=== PATIENT | male | born 1990 | race Caucasian/White ===

== ENCOUNTER 2016-10-07 22:55 | Emergency (ER) | payer SELFPAY ==
[~2016-10-07] VITALS: Ht 180.3 cm; Wt 159.0 kg
[2016-10-07 23:07] VITALS: Ht 180.3 cm; Wt 159.0 kg
--- NOTE | 2016-10-08 00:44 | ERA ---
ER Documentation Chief Complaint Date/Time DATE: 10/08/16 TIME: 00:43 Chief Complaint COUGH HPI The patient is a 25-year-old male, presenting to the ER because of intermittent cough a month ago that went away, however it came back for the last week and a half. He also complained of sore throat, fever for the last 3 days, also said that with loose stool. He denies hematemesis hematochezia, neck pain, chest pain, dyspnea, abdominal pain, nausea, vomiting. He does not smoke, drinks socially, denies illicit drug Past medical/surgical history: None ROS All systems reviewed and are negative except as per history of present illness. Medications Home Meds Active Scripts Dextromethorphan Hb-Promethazine Hcl (Promethazine DM Syrup) 473 Ml Syrup, 10 ML PO Q6H Y for COUGH, #4 OZ Prov:ROSINA GOVEA MD 10/08/16 Ibuprofen* (Motrin*) 600 Mg Tab, 600 MG PO Q6H Y for PAIN AND OR ELEVATED TEMP, #30 TAB Prov:ROSINA GOVEA MD 10/08/16 Amoxicillin/Potassium Clav (Amox-Clav 875-125 mg Tablet) 875-125 mg Tab, 1 TAB PO BID for 10 Days, #20 TAB Prov:ROSINA GOVEA MD 10/08/16 Allergies Allergies: Coded Allergies: No Known Allergy (Unverified , 10/08/16) PMhx/Soc History of Surgery: No Anesthesia Reaction: No Hx Neurological Disorder: No Hx Respiratory Disorders: No Hx Cardiac Disorders: No Hx Psychiatric Problems: No Hx Miscellaneous Medical Probl: No Hx Alcohol Use: No Hx Substance Use: No Hx Tobacco Use: No Physical Exam Vitals Vital Signs Date Time Temp Pulse Resp B/P Pulse Ox O2 Delivery O2 Flow Rate FiO2 10/08/16 03:13 99.6 98 18 130/65 95 Room Air 10/08/16 02:00 111 23 124/73 97 Room Air 10/08/16 00:53 119 16 127/52 100 Room Air 10/07/16 23:07 101.8 124 20 144/84 95 Physical Exam Const: No acute distress. Head: Atraumatic. Eyes: Normal Conjunctiva. ENT: Normal External Ears, Nose and Mouth. Bilateral tympanic membranes are bulging and erythematous, right tonsil is edematous with exudate Neck: Full range of motion. No meningismus. Resp: Clear to auscultation bilaterally. Cardio: Regular but tachycardic Abd: Soft, non distended, normal bowel sounds, non tender. Skin: No petechiae or rashes. Back: No midline or flank tenderness. Ext: No cyanosis, or edema. Neur: Awake and alert. No focal deficit Psych: Normal Mood and Affect. Result Diagram: 10/08/1610410/08/16104 Results 24 hrs Laboratory Tests Test 10/08/16 01:05 White Blood Count 12.910^3/ul Red Blood Count 5.1310^6/ul Hemoglobin 13.4g/dl Hematocrit 41.5% Mean Corpuscular Volume 80.9fl Mean Corpuscular Hemoglobin 26.1pg Mean Corpuscular Hemoglobin Concent 32.3g/dl Red Cell Distribution Width 14.4% Platelet Count 35581^3/UL Mean Platelet Volume 10.7fl Neutrophils % 73.2% Lymphocytes % 16.0% Monocytes % 9.0% Eosinophils % 0.9% Basophils % 0.3% Nucleated Red Blood Cells % 0.0/100WBC Neutrophils # 9.410^3/ul Lymphocytes # 2.110^3/ul Monocytes # 1.210^3/ul Eosinophils # 0.110^3/ul Basophils # 0.010^3/ul Nucleated Red Blood Cells # 0.010^3/ul Prothrombin Time 13.9Sec Prothrombin Time Ratio 1.1 INR International Normalized Ratio 1.07 Activated Partial Thromboplast Time 33.2Sec Sodium Level 137mmol/L Potassium Level 3.2mmol/L Chloride Level 95mmol/L Carbon Dioxide Level 27mmol/L Anion Gap 18 Blood Urea Nitrogen 10mg/dl Creatinine 0.85mg/dl Glucose Level 116mg/dl Lactic Acid Level 1.4mmol/L Calcium Level 8.8mg/dl Total Bilirubin 1.0mg/dl Direct Bilirubin 0.00mg/dl Indirect Bilirubin 1.0mg/dl Aspartate Amino Transf (AST/SGOT) 115IU/L Alanine Aminotransferase (ALT/SGPT) 125IU/L Alkaline Phosphatase 97IU/L Troponin I < 0.012ng/ml Total Protein 8.4g/dl Albumin 4.4g/dl Globulin 4.00g/dl Albumin/Globulin Ratio 1.10 Current Medications Medications (Trade) Dose Ordered Sig/Leonor Route PRN Reason Start Time Stop Time Status Last Admin Dose Admin Acetaminophen 650 mg 650 mg ONCE ONCE PO 10/08/16 01:00 10/08/16 01:01 DC 10/08/16 01:39 Sodium Chloride (NS) 4,930 ml @ 4,930 mls/hr BOLUS X1 ONCE IV 10/08/16 01:00 10/08/16 01:59 DC 10/08/16 01:30 Ibuprofen (Motrin) 600 mg ONCE ONCE PO 10/08/16 01:00 10/08/16 01:01 DC 10/08/16 01:39 Amoxicillin/ Clavulanate Potassium (Augmentin) 875 mg ONCE ONCE PO 10/08/16 04:00 10/08/16 04:01 Procedures/[place] [id number] Radiology Main Line: [phone] DIAGNOSTIC IMAGING REPORT Patient: MAYTE MANUEL : 1990 Age: 25 Sex: M MR #: [id number] DOS: 10/08/16 0044 Ordering MD: ROSINA GOVEA MD Location: E/R Room/Bed: PROCEDURE: Portable chest x-ray. CLINICAL INDICATION: Sepsis. TECHNIQUE: Portable AP view of the chest. COMPARISON: None. FINDINGS: No pulmonary edema or conolidation is identified. The cardiac silhouette is enlarged. No pleural effusion is seen. There is no pneumothorax. IMPRESSION: 1. No evidence of acute cardiopulmonary disease. 2. Enlarged cardiac silhouette. RPTAT: HTAR .Nick Hutton MD, MD Date Time Electronically viewed and signed by .Nick Hutton MD, MD on 10/08/2016 02:02 .R/ CC: ROSINA GOVEA MD EKG: Read by emergency physician Rate/Rhythm: Sinus tachycardia 114 beats/min QRS, ST, T-waves: No ST elevation, no T inversion, LAD, RVH Impression: Abnormal EKG MEDICAL MAKING DECISION: The patient is a 5-year-old male, presenting with acute bilateral otitis media, acute tonsillitis, acute dehydration, acute hypokalemia. He was treated with normal saline 30 mL/kg IV for acute dehydration, potassium chloride 40 mEq p.o. for low potassium, Tylenol and Motrin for fever, Augmentin p.o. for acute tonsillitis and acute bilateral otitis media with good response. He felt better, his vital signs normalized. The differential diagnoses considered include but are not limited to tonsillar abscess, pharyngitis, cellulitis, pneumonia, cystitis, pyelonephritis Departure Diagnosis: Primary Impression: Otitis media Additional Impressions: Tonsillitis Dehydration Hypokalemia Anemia Condition: Good Comments He was discharged with Augmentin, Motrin, Phenergan DM I discussed the findings with the patient. I advised the patient to follow-up with the primary physician in about 1-2 days, sooner if needed and return if any concern. The patient's blood pressure was elevated (>120/80) but appears stable without evidence of hypertension emergency or urgency. The patient was counseled about the risks of hypertension and urged to pursue outpatient monitoring and therapy within a week with their primary care physician. ROSINA GOVEA MD October 08, 2016 00:44
[2016-10-08] MEDS ORDERED: ACETAMINOPHEN 325 MG TAB PO ONE (01:00)
[2016-10-08] MEDS ORDERED: SOD CHLORIDE 0.9% IV ONE (01:00)
[2016-10-08] MEDS ORDERED: IBUPROFEN 600 MG TAB PO ONE (01:00)
[2016-10-08 01:54] LABS: ADD SCAN DIFF NO
[2016-10-08 02:00] LABS: BASOPHILS % 0.3 % (0.0-2.0); EOSINOPHILS # 0.1 10^3/ul (0.0-0.5); EOSINOPHILS % 0.9 % (0.0-7.0); HEMATOCRIT 41.5 % (42.0-52.0); HEMOGLOBIN 13.4 g/dl (14.0-18.0); LYMPHOCYTES # 2.1 10^3/ul (0.8-2.9); MEAN CORPUSCULAR HEMOGLOBIN 26.1 pg (29.0-33.0); MEAN CORPUSCULAR HGB CONC 32.3 g/dl (32.0-37.0); MEAN CORPUSCULAR VOLUME 80.9 fl (82.0-101.0); MEAN PLATELET VOLUME 10.7 fl (7.4-10.4); MONOCYTE # 1.2 10^3/ul (0.3-0.9); NEUTROPHIL # 9.4 10^3/ul (1.6-7.5); NEUTROPHILS % 73.2 % (39.0-77.0); PLATELET COUNT 281 10^3/UL (140-415); RED BLOOD COUNT 5.13 10^6/ul (4.70-6.10); RED CELL DISTRIBUTION WIDTH 14.4 % (11.5-14.5); WHITE BLOOD COUNT 12.9 10^3/ul (4.8-10.8)
--- NOTE | 2016-10-08 02:02 | RADRPT ---
PROCEDURE: Portable chest x-ray. CLINICAL INDICATION: Sepsis. TECHNIQUE: Portable AP view of the chest. COMPARISON: None. FINDINGS: No pulmonary edema or conolidation is identified. The cardiac silhouette is enlarged. No pleural e ffusion is seen. There is no pneumothorax. IMPRESSION: 1. No evidence of acute cardiopulmonary disease. 2. Enlarged cardiac silhouette. RPTAT: HTAR .Nick Hutton MD, MD Date Time Electronically viewed and signed by .Nick Hutton MD, on 10/08/2016 02:02 .R/
[2016-10-08 02:12] LABS: CHLORIDE 95 mmol/L (97-110)
[2016-10-08 02:13] LABS: ALBUMIN 4.4 g/dl (3.3-4.9); POTASSIUM 3.2 mmol/L (3.5-5.1); SODIUM 137 mmol/L (135-144)
[2016-10-08 02:15] LABS: CREATININE 0.85 mg/dl (0.61-1.24); INR 1.07; PROTIME 13.9 Sec (12.2-14.2); PT RATIO 1.1
[2016-10-08 02:16] LABS: ALANINE AMINOTRANSFERASE 125 IU/L (13-69); ALKALINE PHOSPHATASE 97 IU/L (42-121); ANION GAP 18 (8-16); ASPARTATE AMINO TRANSFERASE 115 IU/L (15-46); BLOOD UREA NITROGEN 10 mg/dl (7-20); CALCIUM 8.8 mg/dl (8.4-10.2); CARBON DIOXIDE 27 mmol/L (21-31); GLUCOSE 116 mg/dl (70-220); PARTIAL THROMBOPLASTIN TIME 33.2 Sec (25.0-35.0); TOTAL PROTEIN 8.4 g/dl (6.1-8.1)
[2016-10-08 02:32] LABS: TROPONIN-I < 0.012 ng/ml (0.00-0.12)
[2016-10-08 03:27] LABS: ADD UMIC YES; URINE BILIRUBIN (Dip) NEGATIVE (NEGATIVE); URINE BLOOD (Dip) TRACE (NEGATIVE); URINE COLOR YELLOW (YELLOW); URINE GLUCOSE (Dip) NEGATIVE (NEGATIVE); URINE KETONES (Dip) NEGATIVE (NEGATIVE); URINE LEUKOCYTE ESTERASE (Dip) NEGATIVE (NEGATIVE); URINE NITRITE (Dip) NEGATIVE (NEGATIVE); URINE TOTAL PROTEIN (Dip) 1+ (NEGATIVE); URINE UROBILINOGEN (Dip) 1.0 E.U./dL (0.1-1.0)
[2016-10-08] MEDS ORDERED: IBUP-1542 PO (03:29)
[2016-10-08] MEDS ORDERED: AMOX1TAB10 PO (03:29)
[2016-10-08] MEDS ORDERED: D-ME473S18 PO (03:30)
[2016-10-08 03:51] LABS: URINE RBCS 0-2 /HPF (0)
[2016-10-08 03:52] LABS: BACTERIA,URINE OCCASIONAL; SQUAMOUS EPITHELIAL CELL,UR FEW
[2016-10-08] MEDS ORDERED: AMOXICILLIN/CLAV 875 MG TAB PO ONE (04:00)
[2016-10-08 04:44] VITALS: BP 141/73; PULSE 90; RESP 20; TEMP 98.9
== END 2016-10-08 04:53 | disposition home or self-care (01) ==
LOC: E/R 22:55
DX: H66.93 Otitis media, unspecified, bilateral (principal); R40.2252 Coma scale, best verbal response, oriented, at arrival to emergency department; J03.90 Acute tonsillitis, unspecified; E86.0 Dehydration; E87.6 Hypokalemia; D64.9 Anemia, unspecified; R40.2142 Coma scale, eyes open, spontaneous, at arrival to emergency department; R40.2362 Coma scale, best motor response, obeys commands, at arrival to emergency department; R50.9 Fever, unspecified
CPT/HCPCS: 36415; 71010; 80053; 81001; 81003; 83605; 84484; 85025; 85610; 85730; 87040; 87086; 87400; 99285; J7030

== ENCOUNTER 2016-10-18 03:30 | Emergency (ER) | payer MEDICAID ==
[~2016-10-18] VITALS: Ht 182.9 cm; Wt 160.0 kg
[~2016-10-18 03:30] MED LIST: AMOX1TAB10 PO; D-ME473S18 PO; IBUP-1542 PO
[2016-10-18 03:33] VITALS: Ht 182.9 cm; Wt 160.0 kg
[2016-10-18] MEDS ORDERED: KETOROLAC 60 MG INJ IM STA (04:02)
--- NOTE | 2016-10-18 04:26 | ERD ---
ER Documentation Chief Complaint Date/Time DATE: 10/18/16 TIME: 04:13 Chief Complaint right back rib pain x1 week worse today HPI 25-year-old male presents to emergency department for complete right mid back pain after coughing, patient has been coughing for the last one week, has been having URI symptoms. Patient has been having dry cough, does not cough up any phlegm or blood. Patient does not have any shortness breath or wheezing. Patient was coughing a lot, tonight, had sudden onset of right mid back pain, sharp pain, 9/10 scale, is worse upon movement. Patient felt a tear in the right upper back upon coughing. Patient did not take any medications up and symptoms. Patient denies any dyspnea on exertion or dyspnea on lying down. Patient has no palpitations or irregular heartbeat. Patient denies any nausea vomiting. Patient denies hematuria or dysuria. ROS All systems reviewed and are negative except as per history of present illness. Medications Home Meds Active Scripts Cetirizine Hcl* (Zyrtec*) 10 Mg Capsule, 10 MG PO DAILY, #30 TAB.CHEW Prov:MELANI GUTIERRES NP 10/18/16 Guaifenesin-Codeine Phosphate* (Guaifenesin* AC Cough Syrup) 473 Ml Liquid, 10 ML PO Q4H Y for COUGH, #120 ML Prov:MELANI GUTIERRES NP 10/18/16 Hydrocodone/Acetaminophen (Willis 5-325 Tablet) 1 Each Tablet, 1 TAB PO Q6H Y for SEVERE PAIN LEVEL 7-10, #20 TAB Prov:MELANI GUTIERRES NP 10/18/16 Ibuprofen* (Motrin*) 600 Mg Tab, 600 MG PO Q6H Y for PAIN AND OR ELEVATED TEMP, #30 TAB Prov:MELANI GUTIERRES NP 10/18/16 Dextromethorphan Hb-Promethazine Hcl (Promethazine DM Syrup) 473 Ml Syrup, 10 ML PO Q6H Y for COUGH, #4 OZ Prov:ROSINA GOVEA MD 10/08/16 Ibuprofen* (Motrin*) 600 Mg Tab, 600 MG PO Q6H Y for PAIN AND OR ELEVATED TEMP, #30 TAB Prov:ROSINA GOVEA MD 10/08/16 Amoxicillin/Potassium Clav (Amox-Clav 875-125 mg Tablet) 875-125 mg Tab, 1 TAB PO BID for 10 Days, #20 TAB Prov:ROSINA GOVEA MD 10/08/16 Allergies Allergies: Coded Allergies: No Known Allergy (Unverified , 10/08/16) PMhx/Soc Medical and Surgical Hx: pt denies Medical Hx, pt denies Surgical Hx History of Surgery: No Anesthesia Reaction: No Hx Neurological Disorder: No Hx Respiratory Disorders: No Hx Cardiac Disorders: No Hx Psychiatric Problems: No Hx Miscellaneous Medical Probl: No Hx Alcohol Use: Yes (socially) Hx Substance Use: No Hx Tobacco Use: No FmHx Family History: No coronary disease, No diabetes, No other Physical Exam Vitals Vital Signs Date Time Temp Pulse Resp B/P Pulse Ox O2 Delivery O2 Flow Rate FiO2 10/18/16 05:59 80 16 144/92 97 Room Air 10/18/16 03:33 98.7 110 20 181/99 98 Physical Exam GENERAL: The patient is well developed and appropriate for usual state of health, in no apparent distress. CHEST: Clear to auscultation bilaterally. There are no rales, wheezes or rhonchi. HEART: Regular rate and rhythm. No murmurs, clicks, rubs or gallops. No S3 or S4. ABDOMEN: Soft, nontender and nondistended. Good bowel sounds. No rebound or guarding. No gross peritonitis. No gross organomegaly or masses. No Castellon sign or McBurney point tenderness. BACK: No midline or flank tenderness. Tenderness on palpation in the right upper mid back. EXTREMITIES: Equal pulses bilaterally. There is no peripheral clubbing, cyanosis or edema. No focal swelling or erythema. Full range of motion. Grossly neurovascularly intact. NEURO: Alert and oriented. Cranial nerves 2-12 intact. Motor strength in all 4 extremities with 5/5 strength. Sensation grossly intact. Normal speech and gait. SKIN: There is no apparent rash or petechia. The skin is warm and dry. HEMATOLOGIC AND LYMPHATIC: There is no evidence of excessive bruising or lymphedema. No gross cervical, axillary, or inguinal lymphadenopathy. Results 24 hrs Laboratory Tests Test 10/18/16 05:35 Bedside Urine pH (LAB) 6.0 Bedside Urine Protein (LAB) Negative Bedside Urine Glucose (UA) Negative Bedside Urine Ketones (LAB) Negative Bedside Urine Blood Negative Bedside Urine Nitrite (LAB) Negative Bedside Urine Leukocyte Esterase (L Negative Current Medications Medications (Trade) Dose Ordered Sig/Leonor Route PRN Reason Start Time Stop Time Status Last Admin Dose Admin Ketorolac Tromethamine (Toradol) 60 mg ONCE STAT IM 10/18/16 04:02 10/18/16 04:04 DC 10/18/16 05:11 Acetaminophen/ Hydrocodone Bitart (Willis (5/325)) 2 tab ONCE ONCE PO 10/18/16 04:30 10/18/16 04:31 DC 10/18/16 05:12 Patient was given medication for pain here in emergency department, after treatment, patient verbalized feeling much better. Patient's pain is improved. PROCEDURE: CT ABDOMEN/PELVIS WITHOUT CONTRAST CLINICAL INDICATION: 25-year-old male with right flank pain. TECHNIQUE: The study was performed utilizing a [employer] VCT 64-slice CT scanner. Direct axial sections were obtained through the abdomen and pelvis without the use of intravenous contrast material. Sagittal and coronal reformations were obtained. One or more of the following dose reduction techniques were utilized: automated exposure control, adjustment of the mA and/ or kV according to patient's size or use of iterative reconstruction technique. The images were reviewed on a PACS workstation. CTD/vol = 23.8 mGy; Total Exam DLP = 1603.7 mGy-cm. COMPARISON: None. FINDINGS: The lung bases are unremarkable. There is no evidence for significant pleural effusion. The liver has a normal size and contour. There is diffuse decreased density throughout the liver consistent with fatty infiltration without focal areas of abnormal density. No intrahepatic nor extrahepatic biliary ductal dilatation is seen. The gallbladder is partially collapsed but without evidence for calcified stones, significant wall thickening or pericholecystic fluid. The pancreas is without areas of abnormal attenuation. The spleen is identified and has a normal size without abnormal density. The adrenal glands are unremarkable. The kidneys are without abnormal density. No hydroureteronephrosis nor nephroureterolithiasis is evident. The urinary bladder contains urine. There is no evidence for bowel obstruction. The appendix is visualized and is without abnormal thickening or surrounding inflammatory reaction. Shotty mesenteric lymph nodes are present. There is no significant free fluid. The aortoiliac vessels are without aneurysmal dilatation. The osseous structures are intact. IMPRESSION: 1. Diffuse fatty infiltration of the liver. 2. No CT evidence for obstructive uropathy or renal calculi. 3. No CT evidence for appendicitis. 4. Shotty mesenteric lymph nodes. .Daniel Can MD, MD Date Time Electronically viewed and signed by .Daniel Can MD, MD on 10/18/2016 04:50 .M/ CC: MELANI GUTIERRES HEAD OF LOSS PREVENTION PROCEDURE: CHEST - 2 VIEW CLINICAL INDICATION: 25-year-old male with right-sided chest pain. TECHNIQUE: PA and lateral views of the chest were performed. The images were reviewed on a PACS workstation. COMPARISON: Chest x-ray October 08, 2016; right rib series October 18, 2016. FINDINGS: There is a shallow inspiration accentuating the heart size. Accounting for this , the cardiomediastinal silhouette is within normal limits. There is mild bibasilar subsegmental atelectasis. There is no evidence for an infiltrate. The pulmonary vascularity is within normal limits. There is no evidence for pneumothorax or pneumomediastinum. The osseous structures are intact. IMPRESSION: Shallow inspiration with mild bibasilar subsegmental atelectasis. .Daniel Can MD, MD Date Time Electronically viewed and signed by .Daniel Can MD, MD on 10/18/2016 05:56 .M/ CC: MELANI GUTIERRES HEAD OF LOSS PREVENTION PROCEDURE: RIGHT RIB SERIES - 6 VIEWS CLINICAL INDICATION: 25-year-old male with right-sided chest pain. TECHNIQUE: Multiple oblique views of the right ribs were obtained. The images were reviewed on a PACS workstation. COMPARISON: Chest x-ray obtained concurrently. FINDINGS: There is no evidence for a right rib fracture. The underlying lung parenchyma is intact without evidence for pneumothorax. IMPRESSION: No radiographic evidence for an acute right rib fracture. .Daniel Can MD, MD Date Time Electronically viewed and signed by .Daniel Can MD, on 10/18/2016 05:59 .M/ CC: MELANI GUTIERRES HEAD OF LOSS PREVENTION Procedures/MDM Medical Decision Making: Patient's pain is most likely consistent with a back muscle strain from coughing. Patient's coughing symptomsare most likely is consistent with bronchitis. No suspicion for pneumonia. There is no suspicion for neurovascular compromise. Patient has intact sensation and circulation of the affected extremity. There is low suspicion for septic arthritis. Patient does not have any fever. Radiology exams of the affected area does not show any fracture or dislocation. no kidney stones noted. no hematuria noted. Disposition: Home. Patient is given prescription for ibuprofen for mild to minor pain, Willis for severe pain. Patient was advised to avoid heavy lifting. Patient was advised that if symptoms are worse, numbness, tingling, high fever, unable to move joint, worsening symptoms, to return to emergency department immediately. Otherwise, patient is advised to follow up with the primary care doctor in 5-7 days for reevaluation of symptoms. Departure Diagnosis: Primary Impression: Back strain Encounter type: initial encounter Qualified Code: S39.012A - Back strain, initial encounter Additional Impression: Acute bronchitis Bronchitis organism: unspecified organism Qualified Code: J20.9 - Acute bronchitis, unspecified organism Condition: Stable MELANI GUTIERRES NP October 18, 2016 04:26
[2016-10-18] MEDS ORDERED: HYDROCODONE/APAP (5/325) TAB PO ONE (04:30)
--- NOTE | 2016-10-18 04:50 | RADRPT ---
PROCEDURE: CT ABDOMEN/PELVIS WITHOUT CONTRAST CLINICAL INDICATION: 25-year-old male with right flank pain. TECHNIQUE: The study was performed utilizing a [employer] VCT 64-slice CT scanner. Direct axia l sections were obtained through the abdomen and pelvis without the use of intravenous contrast mate rial. Sagittal and coronal reformations were obtained. One or more of the following dose reduction t echniques were utilized: automated exposure control, adjustment of the mA and/or kV according to pat ient's size or use of iterative reconstruction technique. The images were reviewed on a PACS workst [employer]. CTD/vol = 23.8 mGy; Total Exam DLP = 1603.7 mGy-cm. COMPARISON: None. FINDINGS: The lung bases are unremarkable. There is no evidence for significant pleural effusion. The liver has a normal size and contour. There is diffuse decreased density throughout the liver consistent w ith fatty infiltration without focal areas of abnormal density. No intrahepatic nor extrahepatic margareth iary ductal dilatation is seen. The gallbladder is partially collapsed but without evidence for calc ified stones, significant wall thickening or pericholecystic fluid. The pancreas is without areas of abnormal attenuation. The spleen is identified and has a normal size without abnormal density. The adrenal glands are unremarkable. The kidneys are without abnormal density. No hydroureteronephrosis nor nephroureterolithiasis is evident. The urinary bladder contains urine. There is no evidence for bowel obstruction. The appendix is visualized and is without abnormal thickening or surrounding in flammatory reaction. Shotty mesenteric lymph nodes are present. There is no significant free fluid. The aortoiliac vessels are without aneurysmal dilatation. The osseous structures are intact. IMPRESSION: 1. Diffuse fatty infiltration of the liver. 2. No CT evidence for obstructive uropathy or renal calculi. 3. No CT evidence for appendicitis. 4. Shotty mesenteric lymph nodes. .Daniel Can MD, Date Time Electronically viewed and signed by .Daniel Can MD, MD on 10/18/2016 04:50 .Geraldine/
[2016-10-18 05:34] LABS: URINE BLOOD (Dip) POC Negative (NEGATIVE)
[2016-10-18] MEDS ORDERED: HYDR-906 PO (05:54)
[2016-10-18] MEDS ORDERED: CETI10CA PO (05:54)
[2016-10-18] MEDS ORDERED: IBUP-1542 PO (05:54)
[2016-10-18] MEDS ORDERED: GUAI473L22 PO (05:54)
--- NOTE | 2016-10-18 05:57 | RADRPT ---
PROCEDURE: CHEST - 2 VIEW CLINICAL INDICATION: 25-year-old male with right-sided chest pain. TECHNIQUE: PA and lateral views of the chest were performed. The images were reviewed on a PACS w orkstation. COMPARISON: Chest x-ray October 08, 2016; right rib series October 18, 2016. FINDINGS: There is a shallow inspiration accentuating the heart size. Accounting for this, the cardiomediasti nal silhouette is within normal limits. There is mild bibasilar subsegmental atelectasis. There is no evidence for an infiltrate. The pulmonary vascularity is within normal limits. There is no evide nce for pneumothorax or pneumomediastinum. The osseous structures are intact. IMPRESSION: Shallow inspiration with mild bibasilar subsegmental atelectasis. .Daniel Can MD, MD Date Time Electronically viewed and signed by .Daniel Can MD, on 10/18/2016 05:56 .M/
[2016-10-18 05:59] VITALS: BP 144/92; PULSE 80; RESP 16
--- NOTE | 2016-10-18 05:59 | RADRPT ---
PROCEDURE: RIGHT RIB SERIES - 6 VIEWS CLINICAL INDICATION: 25-year-old male with right-sided chest pain. TECHNIQUE: Multiple oblique views of the right ribs were obtained. The images were reviewed on a PACS workstation. COMPARISON: Chest x-ray obtained concurrently. FINDINGS: There is no evidence for a right rib fracture. The underlying lung parenchyma is intact without evid ence for pneumothorax. IMPRESSION: No radiographic evidence for an acute right rib fracture. .Daniel Can MD, MD Date Time Electronically viewed and signed by .Daniel Can MD, MD on 10/18/2016 05:59 .M/
== END 2016-10-18 06:32 | disposition home or self-care (01) ==
LOC: FTE 03:30
DX: S39.012A Strain of muscle, fascia and tendon of lower back, initial encounter (principal); J20.9 Acute bronchitis, unspecified; X58.XXXA Exposure to other specified factors, initial encounter; Y92.9 Unspecified place or not applicable
CPT/HCPCS: 71020; 71100; 74176; 81003; 96372; J1885; Z7502; Z7610

== ENCOUNTER 2017-02-09 21:16 | Emergency (ER) | payer MEDICAID, OTHER ==
[~2017-02-09] VITALS: Ht 185.4 cm; Wt 161.0 kg
[~2017-02-09 21:16] MED LIST changes: +CETI10CA PO; +GUAI473L22 PO; +HYDR-906 PO
[2017-02-09 21:21] VITALS: Ht 185.4 cm; Wt 161.0 kg
[2017-02-10] MEDS ORDERED: CEPH-443 PO (01:20)
[2017-02-10] MEDS ORDERED: SULF1TAB31 PO (01:20)
[2017-02-10] MEDS ORDERED: IBUP-1542 PO (01:20)
--- NOTE | 2017-02-10 01:26 | ERA ---
ER Documentation Chief Complaint Date/Time DATE: 02/10/17 TIME: 01:22 Chief Complaint BIB SELF, CC: GROIN PAIN X 2 DAYS, NO INJURY HPI 25-year-old male requiring pain starting today. 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 He was walking out of his vehicle when he had a sudden onset of pain in the right region. Worse with movement. Has not taken any medications to relieve the symptoms. No similar symptoms in the past. Does not worsen with any straining. Denies any constipation, fevers, diarrhea, abdominal pain, chest pain, shortness of breath, claudication. Patient also states that he has had a rash that is tender on the right lower extremity. Denies taking any medications to relieve symptoms. No similar symptoms in the past. Patient has no other complaints and describes no other associated manifestations. Nursing notes have been reviewed and are consistent with history given. ROS All systems reviewed and are negative except as per history of present illness. Medications Home Meds Active Scripts Sulfamethoxazole/Trimethoprim* (Bactrim Ds* Tablet) 1 Each Tablet, 1 TAB PO BID , #14 TAB Prov:ROSINA STEPHENS PA-C 02/10/17 Cephalexin* (Keflex*) 500 Mg Capsule, 500 MG PO QID for 5 Days, CAP Prov:ROSINA STEPHENS PA-C 02/10/17 Ibuprofen* (Motrin*) 600 Mg Tab, 600 MG PO Q6, #30 TAB Prov:ROSINA STEPHENS PA-C 02/10/17 Cetirizine Hcl* (Zyrtec*) 10 Mg Capsule, 10 MG PO DAILY, #30 TAB.CHEW Prov:MELANI GUTIERRES NP 10/18/16 Guaifenesin-Codeine Phosphate* (Guaifenesin* AC Cough Syrup) 473 Ml Liquid, 10 ML PO Q4H Y for COUGH, #120 ML Prov:MELANI GUTIERRES NP 10/18/16 Hydrocodone/Acetaminophen ([place] 5-325 Tablet) 1 Each Tablet, 1 TAB PO Q6H Y for SEVERE PAIN LEVEL 7-10, #20 TAB Prov:MELANI GUTIERRES NP 10/18/16 Ibuprofen* (Motrin*) 600 Mg Tab, 600 MG PO Q6H Y for PAIN AND OR ELEVATED TEMP, #30 TAB Prov:MELANI GUTIERRES NP 10/18/16 Dextromethorphan Hb-Promethazine Hcl (Promethazine DM Syrup) 473 Ml Syrup, 10 ML PO Q6H Y for COUGH, #4 OZ Prov:ROSINA GOVEA MD 10/08/16 Ibuprofen* (Motrin*) 600 Mg Tab, 600 MG PO Q6H Y for PAIN AND OR ELEVATED TEMP, #30 TAB Prov:ROSINA GOVEA MD 10/08/16 Amoxicillin/Potassium Clav (Amox-Clav 875-125 mg Tablet) 875-125 mg Tab, 1 TAB PO BID for 10 Days, #20 TAB Prov:ROSINA GOVEA MD 10/08/16 Allergies Allergies: Coded Allergies: No Known Allergy (Unverified , 10/08/16) PMhx/Soc History of Surgery: No Anesthesia Reaction: No Hx Neurological Disorder: No Hx Respiratory Disorders: No Hx Cardiac Disorders: No Hx Psychiatric Problems: No Hx Miscellaneous Medical Probl: No Hx Alcohol Use: Yes (socially) Hx Substance Use: No Hx Tobacco Use: No Physical Exam Vitals Vital Signs Date Time Temp Pulse Resp B/P Pulse Ox O2 Delivery O2 Flow Rate FiO2 02/09/17 21:21 99.1 84 18 160/77 98 Physical Exam Const: Healthy-appearing. Well-nourished. Well-developed. No acute distress. Skin: Erythematous warm, tender to palpation 4 cm area on right lower extremity.. No petechiae or rashes. No ulcer, induration, jaundice. Good turgor. Ext: No cyanosis or edema noted. Head: Normocephalic. Eyes: Non-injected; No scleral erythema, or discharge. EOMI and MISHA bilaterally. Ears: Normal External Ears, EACs clear, TM normal bilaterally without erythema. Nose: Normal nose without discharge, septal deviation, or sinus tenderness. Oral: No oral edema visualized. Mucous membranes moist and pink. Neck: No cervical lymphadenopathy, or masses. Trachea midline. Supple ~ No meningismus. Pulm: Good air movement in upper and lower respiratory tracts. No dyspnea, stridor, tripoding or drooling. Clear to auscultation bilaterally. Cardio: Regular rate and rhythm. No JVD grossly observed. Radial and posterior tibial pulses 2+ bilaterally. No cyanosis. Capillary refill less than 2 seconds. Abd: Soft, non tender, non distended. No guarding. Normal bowel sounds. MS: Pain with internal rotation of right hip. Pain localized to medial right thigh. Most consistent with groin strain versus sprain. Back: No midline or flank tenderness. Neur: Neurovascularly intact bilaterally. Awake, alert and oriented x3. Procedures/MDM Morbidly obese 26-year-old male with no medical conditions presenting with the chief complaints of right groin discomfort starting at work. Patient signs and symptoms are most consistent with groin strain versus sprain. I will suspicion for neurovascular compromise or bony pathology. Patient also has a rash is tender palpation warm to touch. Most consistent with superficial cellulitis. I will suspicion for systemic infection, bacteremia, serious bacterial illness, or other emergent pathologies. Patient will be given Keflex, Bactrim, ibuprofen. Patient is also requested a note for work. We will go ahead and give the patient work excuse 3 days. I have spoke with the patient regarding their condition and future management. They have verbally responded that they understand their status and treatment plan. The patients vitals are stable, and their current condition is appropriate for discharge. The patient will be given discharge instructions with return precautions. Departure Diagnosis: Primary Impression: Groin pain, lower right quadrant Additional Impression: Cellulitis Qualified Code: L03.115 - Cellulitis of right lower extremity Condition: Stable Referrals: [facility] YOU HAVE RECEIVED A MEDICAL SCREENING EXAM AND THE RESULTS INDICATE THAT YOU DO NOT HAVE A CONDITION THAT REQUIRES URGENT TREATMENT IN THE EMERGENCY DEPARTMENT. FURTHER EVALUATION AND TREATMENT OF YOUR CONDITION CAN WAIT UNTIL YOU ARE SEEN IN YOUR DOCTORS OFFICE WITHIN THE NEXT 1-2 DAYS. IT IS YOUR RESPONSIBILITY TO MAKE AN APPOINTMENT FOR FOLOW-UP CARE. IF YOU HAVE A PRIMARY DOCTOR --you should call your primary doctor and schedule an appointment IF YOU DO NOT HAVE A PRIMARY DOCTOR YOU CAN CALL OUR PHYSICIAN REFERRAL HOTLINE AT IF YOU CAN NOT AFFORD TO SEE A PHYSICIAN YOU CAN CHOSE FROM THE FOLLOWING [facility] CLINICS [facility] [id number] [facility] [address] [facility]. [facility] [address] [facility] [address] [facility] [facility] [address] [facility] [facility]. [address] [facility] Rainer se bonner hecho un examen mdico de control que le indica que no est en ashley condicin que requiera tratamiento urgente en el Departamento de Emergencia. Un estudio ms profundo y el tratamiento de samson condicin pueden esperar sin ningn riesgo hasta que usted sea atendida/o en el consultorio de samson mdico o ashley cl carrillo. Es responsabilidad suya arreglar ashley roosevelt para el seguimiento del lila. MANEJO DE CONDICIONES NO URGENTES EN EL FUTURO 1) Si usted tiene un mdico de atencin primaria: Usted debera llamar a samson mdico de atencin primaria antes de venir al departamento de emergencia. Despus de las horas de consultorio, samson doctor o samson asociado/a est disponible por telfono. El mdico o enfermero de nica en el servicio telefnico puede asesorarle por milka medio para atender el problema, o lila contrario se puede programar ashley roosevelt. 2) Si usted no tiene un mdico de atencin primaria: Llame al mdico o clnica de referencia que aparece abajo john las horas de consultorio para hacer ashley roosevelt para que le vean. CLINICAS: [facility] [phone] [facility] [phone] [facility] [phone] [facility]. [place] [phone] [facility]. [place] [id number] [phone] [facility] [phone] [address] Additional Instructions: Follow up with your PCP within the next 1-3 days for a more thorough evaluation and a possible referral to a specialist. Return the the emergency department immediately if symptoms worsen or change. If you have any questions regarding medications, ask your pharmacist or us before you leave. If any adverse reactions occur while taking your medications, discontinue the treatment and return to the emergency department immediately. Take your medications as directed, and complete the entire course of treatment. ROSINA STEPHENS PA-C Feb 10, 2017 01:26
[2017-02-10 01:48] VITALS: BP 141/66; PULSE 78; RESP 17; TEMP 98.4
== END 2017-02-10 01:48 | disposition home or self-care (01) ==
LOC: FTE 21:16
DX: R10.31 Right lower quadrant pain (principal); L03.115 Cellulitis of right lower limb
CPT/HCPCS: 99284